=== PATIENT | male | born 1995 | race Hispanic/Latino ===

== ENCOUNTER 2017-06-13 20:07 | Emergency (ER) | payer BC ==
[2017-06-13 20:12] VITALS: TEMP 99.5; O2SAT 97
[2017-06-13] MEDS ORDERED: Sodium Chloride 0.9% 1,000 ML IV STA (21:04)
--- NOTE | 2017-06-13 21:07 | ED PDOC ---
HPI: Psych/Substance Abuse Time Seen by Provider: 06/13/17 20:31 Chief Complaint (Nursing): Substance Abuse Chief Complaint (Provider): substance abuse Additional Complaint(s): 21yo M in ED with significant other intoxicated and under he influence of narcotics. according to pt pt consume 30mg "oxy". Pt admits to abuse drugs x 2 years and according to girlfriend has relapsed this this week during anniversary of mother/sibling . PT told girlfriend that he is suicidal, did not mention plan. pt denies SI to provider. Past Medical History Reviewed: Historical Data, Nursing Documentation, Vital Signs Vital Signs: Last Vital Signs Temp 99.5 F 06/13/17 20:10 Pulse 130 H 06/13/17 20:10 Resp 18 06/13/17 20:10 BP Pulse Ox 97 06/13/17 20:10 - Medical History PMH: No Chronic Diseases - Family History Family History: States: No Known Family Hx - Allergies Allergies/Adverse Reactions: Allergies Allergy/AdvReac Type Severity Reaction Status Date / Time No Known Allergies Allergy Verified 06/13/17 20:09 Review of Systems ROS Statement: Except As Marked, All Systems Reviewed And Found Negative Neurological: Negative for: Dizziness Physical Exam - Reviewed Nursing Documentation Reviewed: Yes Vital Signs Reviewed: Yes - Physical Exam Appears: Positive for: Non-toxic, No Acute Distress. Negative for: Well ( intoxicated, crying slurred speech, unstable gait. ) Head Exam: Positive for: ATRAUMATIC, NORMAL INSPECTION, NORMOCEPHALIC Skin: Positive for: Normal Color, Warm, DRY Eye Exam: Positive for: Normal appearance, EOMI, PERRL Cardiovascular/Chest: Positive for: Regular Rate, Rhythm Respiratory: Positive for: CNT, Normal Breath Sounds Neurologic/Psych: Positive for: Alert, Oriented - Laboratory Results Result Diagrams: 06/13/17 21:15 06/13/17 21:15 - ECG O2 Sat by Pulse Oximetry: 97 - Progress ED Course And Treament: pt will get crisis evaluation, Orders Category Date Time Status ALCOHOL SERUM Stat Chem 06/13/17 20:46 Ordered COMP METABOLIC PANEL Stat Chem 06/13/17 20:50 Uncollected DRUG SCREEN, URINE Stat Chem 06/13/17 20:32 Uncollected CBC (WITH DIFFERENTIAL) Stat SOLIS 06/13/17 20:50 Uncollected Sodium Chloride 0.9% 1,000 ml Med 06/13/17 21:04 Ordered IV 1,000 mls/hr 1:1 Obs for Suicide Precaution CONT Pt Care 06/13/17 20:50 Active Finger Stick [Glucose, Blood, POC] STAT Pt Care 06/13/17 20:32 Active Medical Decision Making Medical Decision Making: pt will be d/ under MD Dane dx with substance abuse and depression. pt stable for d.c will begin outpt services. Disposition - Clinical Impression Clinical Impression: Depression, Substance abuse - Patient ED Disposition Is Patient to be Admitted: No Counseled Patient/Family Regarding: Diagnosis, Need For Followup - Disposition Disposition: Routine/Home Disposition Time: 23:26 Condition: STABLE Instructions: Polysubstance Abuse (ED) Forms: [employer] (Japanese)
[2017-06-13 21:19] LABS: BASO % 0.4 % (0.0-2.0); EOS # 0.1 K/uL (0.0-0.7); EOS % 1.9 % (0.0-4.0); HEMATOCRIT 44.9 % (35.0-51.0); LYMPH # 2.9 K/uL (1.0-4.3); LYMPH % 37.2 % (20.0-40.0); MEAN CELL VOLUME 94.8 fl (80.0-94.0); MEAN CORPUSCULAR HEMOGLOBIN 30.9 pg (27.0-31.0); MEAN CORPUSCULAR HGB CONC 32.6 g/dL (33.0-37.0); MEAN PLATELET VOLUME 8.7 fl (7.2-11.7); MONO # 0.5 K/uL (0.0-0.8); MONO % 5.9 % (0.0-10.0); NEUT # 4.3 K/uL (1.8-7.0); NEUT % 54.6 % (50.0-75.0); NRBC % 0.1 % (0.0-0.0); RED CELL DISTRIBUTION WIDTH 12.6 % (11.5-14.5); WHITE BLOOD COUNT 7.9 K/uL (4.8-10.8)
[2017-06-13 21:33] LABS: ALB/GLOB RATIO 1.8 (1.0-2.1); ALCOHOL SERUM 70 mg/dl (0-10); ALKALINE PHOSPHATASE 51 U/L (38-126); ALT/SGPT 46 U/L (21-72); AST/SGOT 35 U/L (17-59); BILIRUBIN,TOTAL 0.5 mg/dl (0.2-1.3); BLOOD UREA NITROGEN 18 mg/dl (9-20); CALCIUM 9.3 mg/dL (8.4-10.2); CARBON DIOXIDE 23 mmol/L (22-30); CHLORIDE 106 mmol/L (98-107); GFR AFRICAN-AMERICAN > 60; GLUCOSE,RANDOM 82 mg/dL (75-110); POTASSIUM 4.1 MMOL/L (3.6-5.0); SODIUM 144 mmol/l (132-148)
[2017-06-14 00:06] VITALS: BP 104/59; PULSE 87; RESP 16
--- NOTE | 2017-06-14 11:51 | CARD ---
APPROVED REPORT EKG Measurement Heart [id number] <Conclusion> Sinus tachycardia Otherwise normal ECG
== END 2017-06-13 23:37 | disposition home or self-care (01) ==
LOC: H.ER 20:07
DX: F19.10 Other psychoactive substance abuse, uncomplicated (principal); F32.9 Major depressive disorder, single episode, unspecified
CPT/HCPCS: 80053; 82948; 85025; 93005; 96360; 99282; G0480; J7040